=== PATIENT | female | born 1950 | race Caucasian/White ===

== ENCOUNTER 2021-09-02 16:21 | Observation (INO) ==
[2021-09-02] MEDS ORDERED: Acetaminophen 325 MG TABLET PO PRN (21:18)
[2021-09-02] MEDS ORDERED: Melatonin 3 MG TABLET PO PRN (21:18)
[2021-09-02] MEDS ORDERED: Naloxone 0.4 MG/ML INJ IVP PRN (21:18)
[2021-09-02] MEDS ORDERED: Ondansetron 4 MG/2 ML VIAL IVP PRN (21:18)
[2021-09-02] MEDS: QUEtiapine Fumarate 25 MG TABLET PO SCH (23:03)
[2021-09-03 04:29] LABS: Basophils % 0.4 %; Eosinophils % 0.5 %; Hematocrit 37.5 % (35.3-44.9); Hemoglobin 12.5 g/dL (11.5-15.4); Immature Granulocytes % 0.3 % (0-4); Lymphocytes # 1.5 K/mcL (0.6-4.6); Lymphocytes % 19.6 %; Mean Corpuscular HGB Conc 33.3 g/dL (31.6-35.5); Mean Corpuscular Hemoglobin 31.7 pg (28.0-33.3); Mean Corpuscular Volume 95.2 fL (83.0-100.0); Mean Platelet Volume 11.1 fL (9.4-12.4); Monocytes # 0.4 K/mcL (0.0-1.3); Monocytes % 5.5 %; Neutrophils # 5.8 K/mcL (1.6-8.9); Platelet Count 202 K/mcL (140-400); Red Blood Count 3.94 M/mcL (3.82-4.97); Red Cell Distribution Width 13.3 % (11.5-14.5); Segmented Neutrophils % 73.7 %; White Blood Count 7.8 K/mcL (4.3-11.1)
[2021-09-03 04:45] LABS: Alanine Aminotransferase 8 Units/L (7-52); Alkaline Phosphatase 66 Units/L (34-104); Aspartate Amino Transferase 13 Units/L (13-39); BUN/Creatinine Ratio 17 (6-26); Blood Urea Nitrogen 15 mg/dL (8-23); Calcium 9.7 mg/dL (8.6-10.3); Carbon Dioxide 24 mEq/L (23-29); Chloride 106 mEq/L (98-107); Glucose 107 mg/dL (70-105); Magnesium 1.9 mg/dL (1.6-2.6); Osmolality,Calculated 291 (280-300); Phosphorous 4.4 mg/dL (2.7-4.5); Potassium 3.5 mEq/L (3.5-5.1); Sodium 140 mEq/L (136-145); Troponin I < 0.03 ng/mL (< 0.04); eGFR For African Americans > 60 (> 60); eGFR For Non-African Americans > 60 (> 60)
[2021-09-03] MEDS ORDERED: *HR* Heparin 5,000 UNIT/ML VIAL SQ SCH (06:00)
[2021-09-03] MEDS ORDERED: Regadenoson 0.4 MG/5 ML SYRINGE IVP ONE (06:20)
[2021-09-03] MEDS ORDERED: RIVASTIGMINE 13.3 MG TP SCH (09:00)
[2021-09-03] MEDS ORDERED: Aspirin Enteric Coated 81 MG Tablet PO SCH (09:00)
[2021-09-03] MEDS ORDERED: lisinopriL 20 MG TABLET PO SCH (09:00)
[2021-09-03] MEDS: QUEtiapine Fumarate 25 MG TABLET PO SCH (09:35)
[2021-09-03 10:23] VITALS: BP 128/84; PULSE 85; TEMP 97.9; O2SAT 96
[2021-09-03 11:04] LABS: Chol/HDL Ratio 2.9 (0-4.9); Cholesterol 115 mg/dL (< 200); HDL Cholesterol 39 mg/dL (40-59); LDL Cholesterol,Calculated 54 mg/dL (< 100); Triglycerides 111 mg/dL (< 150)
[2021-09-03 11:21] LABS: Estimated Average Glucose 108 mg/dl; Hemoglobin A1C 5.4 %
[2021-09-03] MEDS ORDERED: Isosorbide MONOnitrate (24 HR) 30 MG TAB.ER.24H PO SCH (14:15)
== END 2021-09-03 14:10 | disposition home or self-care (01) ==
LOC: 3BNU → SUATTDRO 19:50
PROVIDERS: ADMIT Student in an Organized Health Care Education/Training Program; ATTEND Internal Medicine